=== PATIENT | female | born 1945 | race Caucasian/White ===

== ENCOUNTER 2020-10-18 13:15 | Observation (INO) ==
[2020-10-18] MEDS ORDERED: ASPIRIN 325 MG TABLET PO STA (13:50)
[2020-10-18] MEDS ORDERED: NITROGLYCERIN SL 0.4 MG TABLET SL PRN (13:50)
[2020-10-18] MEDS ORDERED: ENOXAPARIN 100 MG/ML SYRINGE SUBCUT STA (13:50)
[2020-10-18 14:04] LABS: Basophils # 0.1 10*3/uL (0.0-0.2); Basophils % 0.5 % (0.0-0.8); Eosinophils # 0.4 10*3/uL (0.0-0.87); Eosinophils % 2.8 % (0.00-10.9); Hematocrit 38.3 VOL% (35.7-47.0); Hemoglobin 12.4 GM/DL (12.0-16.0); Immature Granulocytes % 0.5 %; Immature Granulocytes Absolute 0.06 #; Lymphocytes # 2.6 10*3/uL (1.4-4.0); Lymphocytes % 19.7 % (21.3-54.2); Mean Corpuscular HGB Conc 32.4 GM/DL (32-36); Mean Corpuscular Volume 83.8 FL (87-102); Mean Platelet Volume 9.8 FL (9.6-12.0); Monocytes % 5.4 % (1.7-12.7); Neutrophils % 71.1 % (38.7-73.9); Platelet Count 396 T/CUMM (130-400); Red Blood Count 4.57 MC/CUMM (3.8-5.5); Red Cell Distribution Width 13.2 % (9.3-17.3); White Blood Count 13.1 T/CUMM (4-12)
[2020-10-18 14:12] LABS: Alanine Aminotransferase 18 U/L (13-56); Albumin 3.6 G/DL (3.4-5.0); Alkaline Phosphatase 85 U/L (45-117); Aspartate Amino Transferase 17 U/L (0-37); Bilirubin,Total < 0.39 MG/DL (0.2-1.0); Blood Urea Nitrogen 19 MG/DL (7-18); Calcium 11.6 MG/DL (8.5-10.1); Carbon Dioxide 24 MMOL/L (21-32); Estimated Glom Filtration Rate 50 ML/MIN; Glucose 97 MG/DL (74-106); Osmolality,Calculated 254.4 MOS/KG (273-304); Potassium 4.1 MMOL/L (3.5-5.1); Sodium 126 MMOL/L (136-145); Total Protein 7.6 G/DL (6.4-8.2)
[2020-10-18] MEDS ORDERED: DEXTROSE 50% 25 GM/50 ML VIAL IV PRN (15:22)
[2020-10-18] MEDS ORDERED: GLUCAGON 1 MG VIAL IM PRN (15:22)
[2020-10-18] MEDS ORDERED: ACETAMINOPHEN 325 MG TABLET PO PRN (15:22)
[2020-10-18] MEDS ORDERED: ONDANSETRON 4 MG/2 ML VIAL IV PRN (15:22)
[2020-10-18] MEDS ORDERED: GABAPENTIN 300 MG CAPSULE PO PRN (15:29)
[2020-10-18] MEDS ORDERED: ENOXAPARIN 40 MG/0.4 ML SYRINGE SUBCUT SCH (16:00)
[2020-10-18] MEDS: SODIUM CHLORIDE 0.9% 1,000 ML IV SCH (16:45)
[2020-10-18] MEDS ORDERED: ZALEPLON 5 MG CAPSULE PO SCH (21:00)
[2020-10-18] MEDS ORDERED: HYDROCORTISONE 10 MG TABLET PO SCH (21:00)
[2020-10-18] MEDS: carvediloL 3.125 MG TABLET PO SCH (21:26)
[2020-10-18] MEDS: DOCUSATE SODIUM 100 MG CAPSULE PO SCH (21:26)
[2020-10-19] MEDS: SODIUM CHLORIDE 0.9% 1,000 ML IV SCH ×4 (01:45→17:31)
[2020-10-19 04:54] LABS: Basophils # 0.1 10*3/uL (0.0-0.2); Basophils % 0.5 % (0.0-0.8); Eosinophils # 0.3 10*3/uL (0.0-0.87); Eosinophils % 2.2 % (0.00-10.9); Hematocrit 33.7 VOL% (35.7-47.0); Hemoglobin 10.8 GM/DL (12.0-16.0); Immature Granulocytes % 0.5 %; Immature Granulocytes Absolute 0.06 #; Lymphocytes # 2.7 10*3/uL (1.4-4.0); Lymphocytes % 20.9 % (21.3-54.2); Mean Corpuscular Volume 84.9 FL (87-102); Mean Platelet Volume 9.9 FL (9.6-12.0); Monocytes % 5.7 % (1.7-12.7); Neutrophils % 70.2 % (38.7-73.9); Platelet Count 372 T/CUMM (130-400); Red Blood Count 3.97 MC/CUMM (3.8-5.5); Red Cell Distribution Width 13.1 % (9.3-17.3); White Blood Count 12.7 T/CUMM (4-12)
[2020-10-19 05:24] LABS: Calcium 10.1 MG/DL (8.5-10.1); Osmolality,Calculated 260.9 MOS/KG (273-304); Risk Ratio 3.34; Thyroid Stimulating Hormone 0.751 uIU/ml (0.358-3.74); VLDL CHOLESTEROL 32.8 MG/DL
[2020-10-19] MEDS ORDERED: LEVOTHYROXINE 50 MCG TABLET PO SCH (07:00)
[2020-10-19] MEDS ORDERED: HYDROCORTISONE 10 MG TABLET PO SCH (09:00)
[2020-10-19] MEDS ORDERED: PANTOPRAZOLE 40 MG TABLET PO SCH (09:00)
[2020-10-19] MEDS ORDERED: ASPIRIN EC 81 MG TABLET PO SCH (09:00)
[2020-10-19] MEDS ORDERED: ENOXAPARIN 40 MG/0.4 ML SYRINGE SUBCUT SCH (09:00)
[2020-10-19] MEDS ORDERED: ESTRADIOL 1 MG TABLET PO SCH (09:00)
[2020-10-19] MEDS ORDERED: SODIUM CHLORIDE 0.9% 500 ML IV ONE (09:11)
[2020-10-19] MEDS: carvediloL 3.125 MG TABLET PO SCH (10:54)
[2020-10-19] MEDS: DOCUSATE SODIUM 100 MG CAPSULE PO SCH (10:54)
[2020-10-19 13:53] LABS: Bacteria,Urine Occasional /HPF (Few); Bilirubin,Urine Negative (Negative); Blood, Urine Negative (Negative); Glucose,Urine (UA) Negative (Negative); Ketones,Urine Negative (Negative); Nitrite,Urine Negative (Negative); Protein,Urine Negative; RBC,Urine 1 /HPF (0-4); Squamous Epithelial Cell,Urine Occasional /HPF (0-10); Urine Appearance CLEAR (Clear); Urine Color Colorless (Yellow); Urine Specific Gravity 1.011 (1.001-1.035); Urine Urobilinogen < 2.0 EU/DL (0.2-1.0)
[2020-10-19 16:32] VITALS: BP 123/53
== END 2020-10-19 17:42 | disposition home or self-care (01) ==
LOC: EDUNIT# → N.ED 13:15 → N.EDINP 13:15 → N.TELEN 16:36
PROVIDERS: ADMIT Internal Medicine; ATTEND Internal Medicine